=== PATIENT | female | born 1950 | race Caucasian/White ===

== ENCOUNTER → 2017-12-11 | Outpatient (CLI) | payer OTHER, MEDICARE | LOC: FIMAGING 10:55 | PROVIDERS: ATTEND Physician Assistant Medical | DX: R07.81 Pleurodynia (principal) ==

== ENCOUNTER → 2018-09-07 | Outpatient (CLI) | payer OTHER, MEDICARE | LOC: FIMAGING 09:41 ==

== ENCOUNTER → 2018-09-13 | Outpatient (CLI) | payer OTHER, MEDICARE | LOC: FIMAGING 12:30 ==

== ENCOUNTER → 2018-09-15 | Outpatient (CLI) | payer OTHER, MEDICARE | LOC: FIMAGING 09:53 ==